=== PATIENT | male | born 1950 | race Caucasian/White ===

== ENCOUNTER 2016-11-18 13:24 | Emergency (ER) | payer OTHER ==
[~2016-11-18] VITALS: Ht 172.7 cm; Wt 122.5 kg
[~2016-11-18 13:24] MED LIST: AMOXICILLIN500 M1 PO; ASPIRIN EC81 M1 PO; BACTRIM DS 8001 TAB PO; CENTRUM SILVER1 EAC3 PO; CITALOPRAM HBR40 MG PO; COZAAR50 M1 PO; INVOKANA300 M1 PO; JARDIANCE25 M1 PO; LOSARTAN POTASS50 MG PO; METFORMIN ER500 MG PO; METFORMIN HCL500 M4 PO; PERCOCET 325 MG1 TAB PO; PRAVASTATIN SOD40 M2 PO; PREVACID15 M2 PO; PROPRANOLOL HC120 M1 PO; PROPRANOLOL HY120 MG PO; VICTOZA 3-0.6 MG/0.1 SC; VICTOZA6 MG/ML SC; ZOFRAN 8MG8 MG PO
[2016-11-18 13:35] VITALS: BP 133/74
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
[2016-11-18] MEDS ORDERED: VIBRAMYCIN100 MG PO (14:53)
== END 2016-11-18 14:57 ==
LOC: ERH 13:24
DX: S61.201A Unspecified open wound of left index finger without damage to nail, initial encounter (principal); S61.203A Unspecified open wound of left middle finger without damage to nail, initial encounter; W29.3XXA Contact with powered garden and outdoor hand tools and machinery, initial encounter
CPT/HCPCS: 90471